=== PATIENT | male | born 1950 | race Caucasian/White ===

== ENCOUNTER 2023-07-02 05:46 | Inpatient (IN) | payer MEDICARE ==
[~2023-07-02] VITALS: Ht 182.9 cm; Wt 60.3 kg
[~2023-07-02 05:46] MED LIST: ACETAMINOPHEN325 M1 PO; AMIODARONE HCL200 MG PO; ATORVASTATIN CA10 MG PO; AUGMENTIN 500-1 EACH PO; BUSPIRONE HCL5 MG PO; CALCIUM CARBON500 MG PO; COLACE CLEAR50 MG PO; COMBIVENT RESPIM4 GM IH; CRESTOR10 MG PO; DILANTIN100 MG PO; ELIQUIS5 MG PO; FEROSUL325 MG PO; FINASTERIDE5 MG PO; FLOMAX0.4 MG PO; FLUDROCORTISON0.1 MG PO; HYDRALAZINE HCL10 MG PO; KEFLEX500 MG; METOPROLOL TART25 MG PO; MUPIROCIN TOP; ONDANSETRON ODT8 MG PO; SENNA LAX8.6 MG PO; TYLENOL WITH C1 EACH PO; ZOLOFT50 MG PO
[2023-07-02] MEDS: CEFTRIAXONE 1 GM VIAL ONE (07:32)
[2023-07-02] MEDS: GENTAMICIN 80MG/NS 100 ML 200 ML IV ONE (07:32)
[2023-07-02] MEDS: SODIUM CHLORIDE 0.9% 1000ML 1,000 ML ONE (07:33)
[2023-07-02] MEDS ORDERED: IOPAMIDOL 610MG/1ML 300 MG/ML VIAL IV ONE ×2 (08:18→12:04)
[2023-07-02] MEDS ORDERED: PROPOFOL IV EMULSION 10 MG/ML 20 ML VIAL ONE (13:10)
[2023-07-02] MEDS ORDERED: EPHEDRINE SULFATE INJ 50 MG/ML VIAL ONE (13:10)
[2023-07-02] MEDS ORDERED: SEVOFLURANE INHAL SOLN 250 ML PEN BTL ONE (13:10)
[2023-07-02] MEDS ORDERED: DEXAMETHASONE SOD PHOS INJ 4 MG/ML SDV ONE (13:10)
[2023-07-02] MEDS ORDERED: VASOPRESSIN INJ 20 UNIT/ML VIAL ONE (13:10)
[2023-07-02] MEDS ORDERED: LIDOCAINE HCL 2% LOCAL INJ 5 ML SDV VIAL INJ ONE (13:10)
[2023-07-02] MEDS ORDERED: ONDANSETRON HCL INJ 2MG/ML 2ML 2 MG/ML VIAL ONE (13:10)
[2023-07-02] MEDS ORDERED: PHENAZOPYRIDINE HCL 100 MG TAB PO PRN (15:15)
[2023-07-02] MEDS ORDERED: ONDANSETRON HCL INJ 2MG/ML 2ML 2 MG/ML VIAL IV PRN (15:15)
[2023-07-02] MEDS ORDERED: DIPHENHYDRAMINE HCL 25 MG CAP PO PRN (15:15)
[2023-07-02 15:48] LABS: BASOPHILS # (AUTO) 0.1 (0.0-0.1); BASOPHILS % 0.5 % (0.0-1.0); EOSINOPHILS # (AUTO) 0.1 (0.0-0.4); EOSINOPHILS % 0.8 % (0.0-6.0); HEMATOCRIT 38.3 % (38.2-49.6); HEMOGLOBIN 12.8 g/dL (14.0-18.0); LYMPHOCYTES # (AUTO) 0.4 (1.0-3.2); LYMPHOCYTES % 3.1 % (18.0-39.1); MEAN CORPUSCULAR HEMOGLOBIN 32.4 pg (28-32); MEAN CORPUSCULAR HGB CONC 33.4 g/dL (31-35); MONOCYTES # (AUTO) 0.4 (0.2-0.8); MONOCYTES % 2.7 % (4.4-11.3); NEUTROPHILS # (AUTO) 13.1 (2.1-6.9); NEUTROPHILS % 92.5 % (38.7-80.0); PLATELET COUNT 197 x10e3/uL (140-360); RED BLOOD COUNT 3.95 x10e6/uL (4.3-5.7); RED CELL DISTRIBUTION WIDTH 16.5 % (11.7-14.4)
[2023-07-02 16:04] VITALS: BP 126/72; PULSE 81; RESP 17; TEMP 97.4; O2SAT 99
[2023-07-02 16:04] LABS: ANION GAP 14.2 mmol/L (8-16); CALCIUM 8.6 mg/dL (8.4-10.2); CREATININE, SERUM 0.84 mg/dL (0.72-1.25); POTASSIUM 4.2 mmol/L (3.5-5.1)
[2023-07-02] MEDS: SODIUM CHLORIDE 0.9% 1000ML 1,000 ML IV SCH (16:39)
[2023-07-02] MEDS ORDERED: FENTANYL CITRATE/PF 100MCG/2 ML INJ ONE (16:58)
[2023-07-02] MEDS ORDERED: SENNA-S TABLET PO SCH (17:00)
[2023-07-02] MEDS ORDERED: ACETAMINOPHEN 1000 MG/100 ML IV PRN (18:00)
[2023-07-02 19:43] VITALS: BP 96/68; PULSE 77; RESP 18; TEMP 97.6; O2SAT 99
[2023-07-02] MEDS: SENNA-S TABLET PO SCH (21:00)
[2023-07-02] MEDS: ACETAMINOPHEN/CODEINE 300MG - 30MG TAB PO PRN (21:15)
[2023-07-02 23:44] VITALS: BP 95/67; PULSE 78; RESP 18; TEMP 97.6; O2SAT 99
[2023-07-03] VITALS (8 sets, daily range): BP systolic 91–121; BP diastolic 55–71; PULSE 69–75; RESP 12–18; TEMP 97.6–97.9; O2SAT 97–100
[2023-07-03 05:57] LABS: BASOPHILS # (AUTO) 0.1 (0.0-0.1); BASOPHILS % 0.6 % (0.0-1.0); EOSINOPHILS # (AUTO) 0.3 (0.0-0.4); EOSINOPHILS % 2.7 % (0.0-6.0); HEMATOCRIT 33.1 % (38.2-49.6); HEMOGLOBIN 10.9 g/dL (14.0-18.0); LYMPHOCYTES % 10.7 % (18.0-39.1); MEAN CORPUSCULAR HEMOGLOBIN 31.9 pg (28-32); MEAN CORPUSCULAR HGB CONC 32.9 g/dL (31-35); MEAN CORPUSCULAR VOLUME 96.8 fL (81-99); MONOCYTES % 10.4 % (4.4-11.3); NEUTROPHILS # (AUTO) 7.1 (2.1-6.9); NEUTROPHILS % 75.3 % (38.7-80.0); PLATELET COUNT 188 x10e3/uL (140-360); RED BLOOD COUNT 3.42 x10e6/uL (4.3-5.7); RED CELL DISTRIBUTION WIDTH 16.8 % (11.7-14.4); WHITE BLOOD COUNT 9.37 x10e3/uL (4.8-10.8)
[2023-07-03 06:17] LABS: ANION GAP 10.1 mmol/L (8-16); CALCIUM 8.5 mg/dL (8.4-10.2); CREATININE, SERUM 0.75 mg/dL (0.72-1.25); POTASSIUM 4.1 mmol/L (3.5-5.1)
[2023-07-03] MEDS ORDERED: ALBUTEROL/IPRATROPIUM 3 ML NEB NEB PRN (09:30)
[2023-07-03] MEDS: AMIODARONE HCL 200 MG TAB PO SCH (09:51)
[2023-07-03] MEDS: METOPROLOL TARTRATE 25 MG TAB PO SCH (09:52)
[2023-07-03] MEDS ORDERED: OYST-CAL-D 500MG TABLET PO SCH (15:00)
[2023-07-03] MEDS: PHENYTOIN 50 MG TAB PO SCH (15:00)
[2023-07-03] MEDS ORDERED: PHENYTOIN PO (16:32)
[2023-07-03] MEDS ORDERED: FLUDROCORTISONE ACETATE 0.1 MG TAB PO SCH ×2 (17:00→21:00)
[2023-07-03] MEDS ORDERED: BUSPIRONE HCL 5 MG TAB PO SCH (17:00)
[2023-07-03] MEDS ORDERED: TAMSULOSIN HCL 0.4 MG CAP PO SCH (17:00)
[2023-07-03] MEDS ORDERED: TUMS ULTRA400 MG PO (18:05)
[2023-07-03] MEDS ORDERED: METOPROLOL SUCC25 MG PO (18:05)
[2023-07-03] MEDS ORDERED: CALCIUM CARBONATE 500 MG CHEWABLE TABS PO PRN (18:15)
[2023-07-03] MEDS ORDERED: DOCUSATE SODIUM LIQD 100 MG/10 ML UDC NG PRN (18:15)
[2023-07-03] MEDS ORDERED: HYDRALAZINE HCL 10 MG TAB PO PRN (18:15)
[2023-07-03] MEDS: TAMSULOSIN HCL 0.4 MG CAP PO SCH (20:27)
[2023-07-03] MEDS: ATORVASTATIN 10 MG TAB PO SCH (20:27)
[2023-07-03] MEDS: PHENYTOIN 100 MG/4 ML CUP PO SCH (20:28)
[2023-07-03] MEDS: BUSPIRONE HCL 5 MG TAB PO SCH (20:28)
[2023-07-03] MEDS ORDERED: METOPROLOL TARTRATE 25 MG TAB PO SCH (21:00)
[2023-07-04] VITALS (7 sets, daily range): BP systolic 98–137; BP diastolic 65–89; PULSE 69–80; RESP 18–19; TEMP 97.5–98.9; O2SAT 98–100
[2023-07-04 05:16] LABS: BASOPHILS % 0.4 % (0.0-1.0); EOSINOPHILS # (AUTO) 0.4 (0.0-0.4); EOSINOPHILS % 4.9 % (0.0-6.0); HEMATOCRIT 35.1 % (38.2-49.6); LYMPHOCYTES # (AUTO) 0.8 (1.0-3.2); LYMPHOCYTES % 9.5 % (18.0-39.1); MEAN CORPUSCULAR HEMOGLOBIN 31.1 pg (28-32); MEAN CORPUSCULAR HGB CONC 31.3 g/dL (31-35); MEAN CORPUSCULAR VOLUME 99.2 fL (81-99); MONOCYTES # (AUTO) 0.8 (0.2-0.8); MONOCYTES % 9.9 % (4.4-11.3); NEUTROPHILS # (AUTO) 6.2 (2.1-6.9); NEUTROPHILS % 74.9 % (38.7-80.0); PLATELET COUNT 189 x10e3/uL (140-360); RED BLOOD COUNT 3.54 x10e6/uL (4.3-5.7); RED CELL DISTRIBUTION WIDTH 16.8 % (11.7-14.4); WHITE BLOOD COUNT 8.22 x10e3/uL (4.8-10.8)
[2023-07-04 06:12] LABS: ANION GAP 12.4 mmol/L (8-16); CALCIUM 8.8 mg/dL (8.4-10.2); CREATININE, SERUM 0.73 mg/dL (0.72-1.25)
[2023-07-04 06:13] LABS: POTASSIUM 3.4 mmol/L (3.5-5.1)
[2023-07-04] MEDS: FERROUS SULFATE 325 MG TAB PO SCH (09:19)
[2023-07-04] MEDS: METOPROLOL TARTRATE 25 MG TAB PO SCH (09:20)
[2023-07-04] MEDS: FINASTERIDE 5 MG TAB PO SCH (09:21)
[2023-07-04] MEDS: FLUDROCORTISONE ACETATE 0.1 MG TAB PO SCH (09:21)
[2023-07-04] MEDS: SERTRALINE HCL 50 MG TAB PO SCH (09:21)
[2023-07-04] MEDS: POTASSIUM CHLORIDE 10MEQ EA PO SCH (11:59)
[2023-07-05] VITALS (8 sets, daily range): BP systolic 96–119; BP diastolic 60–84; PULSE 67–83; RESP 15–44; TEMP 97.5–98.2; O2SAT 97–100
[2023-07-05 04:54] LABS: BASOPHILS # (AUTO) 0.1 (0.0-0.1); BASOPHILS % 0.8 % (0.0-1.0); EOSINOPHILS # (AUTO) 0.6 (0.0-0.4); EOSINOPHILS % 7.6 % (0.0-6.0); HEMATOCRIT 33.7 % (38.2-49.6); HEMOGLOBIN 11.3 g/dL (14.0-18.0); LYMPHOCYTES # (AUTO) 0.9 (1.0-3.2); LYMPHOCYTES % 12.5 % (18.0-39.1); MEAN CORPUSCULAR HEMOGLOBIN 31.8 pg (28-32); MEAN CORPUSCULAR HGB CONC 33.5 g/dL (31-35); MEAN CORPUSCULAR VOLUME 94.9 fL (81-99); MONOCYTES # (AUTO) 0.9 (0.2-0.8); MONOCYTES % 12.1 % (4.4-11.3); NEUTROPHILS # (AUTO) 4.9 (2.1-6.9); NEUTROPHILS % 66.9 % (38.7-80.0); PLATELET COUNT 195 x10e3/uL (140-360); RED BLOOD COUNT 3.55 x10e6/uL (4.3-5.7); RED CELL DISTRIBUTION WIDTH 16.5 % (11.7-14.4); WHITE BLOOD COUNT 7.37 x10e3/uL (4.8-10.8)
[2023-07-05 05:51] LABS: ANION GAP 13.4 mmol/L (8-16); CALCIUM 8.7 mg/dL (8.4-10.2); CREATININE, SERUM 0.79 mg/dL (0.72-1.25)
[2023-07-05 05:56] LABS: POTASSIUM 3.4 mmol/L (3.5-5.1)
[2023-07-05] MEDS ORDERED: ONDANSETRON HCL 4 MG ORAL DISINTEGRATING TAB PO PRN (11:00)
[2023-07-06] VITALS: BP 117/96; PULSE 75; RESP 16; TEMP 98.2; O2SAT 100
[2023-07-06 04:53] LABS: BASOPHILS # (AUTO) 0.1 (0.0-0.1); BASOPHILS % 0.6 % (0.0-1.0); EOSINOPHILS # (AUTO) 0.6 (0.0-0.4); EOSINOPHILS % 5.9 % (0.0-6.0); HEMATOCRIT 36.8 % (38.2-49.6); HEMOGLOBIN 11.7 g/dL (14.0-18.0); LYMPHOCYTES # (AUTO) 0.7 (1.0-3.2); LYMPHOCYTES % 7.5 % (18.0-39.1); MEAN CORPUSCULAR HEMOGLOBIN 31.1 pg (28-32); MEAN CORPUSCULAR HGB CONC 31.8 g/dL (31-35); MEAN CORPUSCULAR VOLUME 97.9 fL (81-99); MONOCYTES # (AUTO) 1.1 (0.2-0.8); MONOCYTES % 10.9 % (4.4-11.3); NEUTROPHILS # (AUTO) 7.4 (2.1-6.9); NEUTROPHILS % 74.7 % (38.7-80.0); PLATELET COUNT 212 x10e3/uL (140-360); RED BLOOD COUNT 3.76 x10e6/uL (4.3-5.7); RED CELL DISTRIBUTION WIDTH 16.4 % (11.7-14.4); WHITE BLOOD COUNT 9.84 x10e3/uL (4.8-10.8)
[2023-07-06 05:18] LABS: ANION GAP 14.3 mmol/L (8-16); CALCIUM 8.7 mg/dL (8.4-10.2); CREATININE, SERUM 0.86 mg/dL (0.72-1.25)
[2023-07-06 05:19] LABS: POTASSIUM 3.3 mmol/L (3.5-5.1)
[2023-07-06 08:24] VITALS: BP 95/61; PULSE 84; RESP 16; TEMP 98.1; O2SAT 98
[2023-07-06 08:39] VITALS: BP 95/61; PULSE 84; RESP 16; TEMP 98.1; O2SAT 98
[2023-07-06 12:41] VITALS: BP 98/62; PULSE 77; RESP 17; TEMP 97.8; O2SAT 98
[2023-07-06 14:41] VITALS: PULSE 73; RESP 18; O2SAT 94
== END 2023-07-06 18:49 | DRG 713 ==
LOC: OR 05:46 → PACU V 15:30 → MED/SURG 16:00
PROVIDERS: ADMIT Urology; ATTEND Urology
PROC: 0VB08ZZ Excision of Prostate, Via Natural or Artificial Opening Endoscopic (ICD-10-PCS; 2023-07-02)
PROC: BT141ZZ Fluoroscopy of Kidneys, Ureters and Bladder using Low Osmolar Contrast (ICD-10-PCS; principal; 2023-07-02 12:11)
DX: N40.1 Benign prostatic hyperplasia with lower urinary tract symptoms (principal); D62 Acute posthemorrhagic anemia; N13.8 Other obstructive and reflux uropathy; N39.0 Urinary tract infection, site not specified; R33.8 Other retention of urine; Z79.899 Other long term (current) drug therapy; Z79.01 Long term (current) use of anticoagulants; I10 Essential (primary) hypertension; I25.2 Old myocardial infarction; I48.91 Unspecified atrial fibrillation; E78.5 Hyperlipidemia, unspecified; Z95.0 Presence of cardiac pacemaker; I11.0 Hypertensive heart disease with heart failure; I50.9 Heart failure, unspecified; I25.10 Atherosclerotic heart disease of native coronary artery without angina pectoris
CPT/HCPCS: 36415; 71046; 74420; 80048; 82948; 83735; 85025; 87086; 87186; 88305; 92523; 93005; 94799; C1758; C1769; J0696; J1100; J1580; J2001; J2405; J7030

== ENCOUNTER → 2024-03-08 | Day surgery (SDC) | payer MEDICARE ==
[~2024-03-08] MED LIST changes: +ACETAMINOPHEN-1 EAC4; +ALLOPURINOL100 MG PO; +BENADRYL ALLERG50 MG; +DILANTIN-1125 MG/5 M; +METOPROLOL SUCC25 MG PO; +PHENYTOIN PO; +TUMS ULTRA400 MG PO
[2024-03-08 09:33] LABS: BASOPHILS # (AUTO) 0.1 (0.0-0.1); BASOPHILS % 0.4 % (0.0-1.0); EOSINOPHILS # (AUTO) 0.2 (0.0-0.4); EOSINOPHILS % 1.3 % (0.0-6.0); HEMATOCRIT 44.8 % (38.2-49.6); LYMPHOCYTES # (AUTO) 0.9 (1.0-3.2); LYMPHOCYTES % 6.4 % (18.0-39.1); MEAN CORPUSCULAR HGB CONC 31.3 g/dL (31-35); MEAN CORPUSCULAR VOLUME 102.5 fL (81-99); MONOCYTES # (AUTO) 1.4 (0.2-0.8); NEUTROPHILS # (AUTO) 11.1 (2.1-6.9); NEUTROPHILS % 81.5 % (38.7-80.0); PLATELET COUNT 205 x10e3/uL (140-360); RED BLOOD COUNT 4.37 x10e6/uL (4.3-5.7); RED CELL DISTRIBUTION WIDTH 13.3 % (11.7-14.4); WHITE BLOOD COUNT 13.55 x10e3/uL (4.8-10.8)
[2024-03-08 09:42] LABS: ANION GAP 17.1 mmol/L (8-16); CALCIUM 9.3 mg/dL (8.4-10.2); CREATININE, SERUM 0.65 mg/dL (0.72-1.25); POTASSIUM 5.1 mmol/L (3.5-5.1)
[2024-03-08] MEDS: LACTATED RINGER'S 1,000 ML ONE (10:25)
[2024-03-08] MEDS: PIPERACILLIN/TAZOBACTAM 3.375 GM VIAL ONE (10:25)
[2024-03-08] MEDS: GENTAMICIN 80MG/NS 100 ML 200 ML IV ONE (10:26)
[2024-03-08] MEDS: PHENAZOPYRIDINE HCL 100 MG TAB PO ONE (14:25)
[2024-03-08 14:30] VITALS: TEMP 98.4
[2024-03-08 14:50] VITALS: BP 143/86; PULSE 73; RESP 16; O2SAT 98
== END | disposition home or self-care (01) ==
LOC: OR 05:00
PROVIDERS: ATTEND Urology
DX: R33.8 Other retention of urine (principal); N39.0 Urinary tract infection, site not specified; N35.812 Other bulbous urethral stricture, male; N31.2 Flaccid neuropathic bladder, not elsewhere classified; N32.89 Other specified disorders of bladder; N13.8 Other obstructive and reflux uropathy; N40.1 Benign prostatic hyperplasia with lower urinary tract symptoms; R39.14 Feeling of incomplete bladder emptying; R39.16 Straining to void; R39.15 Urgency of urination; I12.9 Hypertensive chronic kidney disease with stage 1 through stage 4 chronic kidney disease, or unspecified chronic kidney disease; N18.9 Chronic kidney disease, unspecified; I25.2 Old myocardial infarction; I25.10 Atherosclerotic heart disease of native coronary artery without angina pectoris; G40.909 Epilepsy, unspecified, not intractable, without status epilepticus; F89 Unspecified disorder of psychological development; F84.0 Autistic disorder; Z79.02 Long term (current) use of antithrombotics/antiplatelets; Z79.899 Other long term (current) drug therapy; Z95.810 Presence of automatic (implantable) cardiac defibrillator
CPT/HCPCS: 36415; 51040; 52005; 74420; 80048; 85025; 87086; 87186; 93005; C1758; J1580; J2543; J7121